=== PATIENT | female | born 1995 | race Caucasian/White ===

== ENCOUNTER 2019-02-16 19:09 | Emergency (ER) | payer SELFPAY ==
[2019-02-16] MEDS: KETOROLAC 15 MG INJ IM (20:02)
== END 2019-02-16 20:20 | disposition home or self-care (01) ==
LOC: FTE 19:09
DX: S16.1XXA Strain of muscle, fascia and tendon at neck level, initial encounter (principal); S09.90XA Unspecified injury of head, initial encounter; W01.198A Fall on same level from slipping, tripping and stumbling with subsequent striking against other object, initial encounter; Y92.480 Sidewalk as the place of occurrence of the external cause
CPT/HCPCS: 81025; 96372; 99284-25